=== PATIENT | female | born 1995 | race Caucasian/White ===

== ENCOUNTER 2020-05-23 22:59 | Emergency (ER) | payer SELFPAY ==
[~2020-05-23] VITALS: Ht 167.6 cm; Wt 65.9 kg
[2020-05-23 23:32] VITALS: BP 120/70; TEMP 98.1
[2020-05-24 00:11] LABS: COLLECTION METHOD CLEAN CATCH
[2020-05-24 00:19] LABS: MUCOUS Present /lpf; PH 5 (5-8); URINE APPEARANCE Hazy; URINE BACTERIA Rare /hpf; URINE BILIRUBIN Negative (NEGATIVE); URINE BLOOD 2+ (NEGATIVE); URINE COLOR Yellow; URINE GLUCOSE Negative (NEGATIVE); URINE KETONE Trace (NEGATIVE); URINE LEUKOCYTE ESTERASE Negative (NEGATIVE); URINE NITRATE Negative (NEGATIVE); URINE PROTEIN(semi-quant) 1+ (NEGATIVE); URINE RBC 0-2 /hpf; URINE UROBILINOGEN >=4.0 mg/dL (NEGATIVE)
[2020-05-24 02:00] VITALS: PULSE 72
[2020-05-26] MEDS ORDERED: MACROBID 1100 MG/CAP PO (09:00)
== END 2020-05-24 02:00 | disposition home or self-care (01) ==
LOC: COL.ER 22:59
PROVIDERS: Emergency Medicine
DX: S63.502A Unspecified sprain of left wrist, initial encounter (principal); N93.9 Abnormal uterine and vaginal bleeding, unspecified; R40.2412 Glasgow coma scale score 13-15, at arrival to emergency department; W11.XXXA Fall on and from ladder, initial encounter; Y92.009 Unspecified place in unspecified non-institutional (private) residence as the place of occurrence of the external cause